=== PATIENT | female | born 1995 | race Two or more races ===

== ENCOUNTER 2024-07-11 11:12 | Inpatient (IN) | payer OTHER ==
[~2024-07-11] VITALS: Ht 121.9 cm; Wt 40.8 kg
--- NOTE | 2024-07-11 11:34 | NUR ---
PTE REFIERE MAREOS Y AZUCAR KAREN DESDE HACE VARIOS ECHEVERRIA. SE LEREALIZA DXT LA CUAL DA MAYOR DE 600 MG DL SE LE ZEINA S/V Y SE UBICA EN AREA DE OBSERVACION.
--- NOTE | 2024-07-11 12:21 | NUR ---
SE RECIBE PTE EN AREA DE CRITICO ALERTA Y ORIENTADA X3 CON 600 MG/DL EN GLUCOSA SE CONECTA A MONITOR CARDIACOY OXIMETRIA, SE CANALIZA CIARAN DE EDEMA NI ERITEMA EN MANO RT EN FOREAM Y HAND CON #20, PTE NO PRESENTA EDEMA EN BRAZOS. ABDOMEN BLANDO AL TACTO NO PRESENTA EDEMA EN PARRISH PIES. SE OBSERAVA PIEL NORMAL Y CUIDADA. SE MANTIENE MONITOREADA.
[2024-07-11 12:47] LABS: HEMATOCRIT 42.9 % (36.0-45.00); HEMOGLOBIN 14.2 g/dL (12.0-15.00); MEAN CELL VOLUME 90.8 fL (80.00-100.00); MEAN CORPUSCULAR HEMOGLOBIN 29.9 pg (27.00-32.0); PLATELET COUNT 282 K/uL (150-450); RED BLOOD COUNT 4.73 M/uL (4.00-6.00); RED CELL DISTRIBUTION WIDTH 12.5 % (11.5-14.5)
[2024-07-11] MEDS ORDERED: INSULIN REGULAR, HUMAN 1,000 UNIT/10 ML UNITS IV STA (12:51)
[2024-07-11] MEDS ORDERED: SODIUM CL 0.9% 25 ML IV.SOLN. IV SCH (13:00)
[2024-07-11 13:24] LABS: ABG PH 7.369 (7.35-7.45); ABG pCO2 33.5 mmHg (35-45); BASE EXCESS -5.4 mmol/l; BICARBONATE 18.9 mmol/l (23-25); SaO2 97.2 %; Tco2 19.9 mmol/l
[2024-07-11 13:25] LABS: allen test SATISFACTORY; o2 21 %; puncture site RADIAL LEFT
[2024-07-11 13:27] LABS: proBNP 33 pg/mL (0-51.9)
[2024-07-11 13:29] LABS: TROPONIN I hs < 3.0 PG/ML (42.2-82.3)
[2024-07-11 13:30] LABS: INR < 0.93; PARTIAL THROMBOPLASTIN TIME 25.5 SECONDS (22.0-34.0); PROTHROMBIN TIME 10.1 SECONDS (9.0-11.5)
[2024-07-11 14:03] LABS: ALBUMIN 3.9 gm/dL (3.4-5.0); BILIRUBIN TOTAL 0.41 mg/dL (0.3-1.2); CALCIUM 9.6 mg/dL (8.5-10.1); CREATININE SERUM 0.71 mg/dL (0.55-1.02); GFR 98.75; GLOBULINA 3.7 G/DL (2.4-3.5); POTASSIUM 4.57 mEq/L (3.5-5.1); TOTAL PROTEIN 7.6 gm/dL (6.4-8.2)
[2024-07-11 14:12] LABS: PH,URINE 6.5 (5.0-8.0); URINE APPEARANCE Clear; URINE BILIRRUBIN Negative (NEGATIVE); URINE BLOOD Negative; URINE COLOR Yellow; URINE LEUKOCYTE Negative; URINE NITRATE Negative; URINE PROTEIN Negative (NEGATIVE); URINE UROBILINOGEN 0.2 E.U./dl
[2024-07-11 14:17] LABS: URINE BACTERIA 2811.2 uL (0.0-1933); URINE EPITHELIAL CELLS 12.9 uL (0.0-38.8); URINE WBC 12.6 uL (0.0-23.2)
[2024-07-11 14:23] LABS: URINE GLUCOSE >=1000 MG/DL (NEGATIVE); URINE KETONE 80 (NEGATIVE); URINE RBC 0.7 uL (0.0-20.8)
--- NOTE | 2024-07-11 16:23 | NUR ---
SE RECIBE PT EALERTA Y ORIENTADA EN CAMA #3 DE UNIDAD DE CRITICO. PTE CONECTADA A MONITOR CARDIACO CON OXIMETRIA CONTINUA. PTE CON H/L X2 EN BRAZO RT LIBRES DE EDEMA, PTE CON IV FLUIDS DE 0.9NSS BAJANDO A 250ML/HR. PTE CONSULTADA CON MEDICINA INTERNA. SE MIDEN S/V A PTE Y SE DOCUMENTAN , PTE SE CONTINUA MONITORIANDO POR CAMBIOS.
[2024-07-11] MEDS ORDERED: 0.9 % SODIUM CHLORIDE 1,000 ML IV SCH (17:30)
[2024-07-11] MEDS ORDERED: 0.9 % SODIUM CHLORIDE 1,000 ML IV ONE (17:30)
[2024-07-11] MEDS ORDERED: ONDANSETRON HCL 4 MG in 0.9 % SODIUM CHLORIDE 50 ML IV PRN (17:30)
[2024-07-11] MEDS ORDERED: ACETAMINOPHEN 500 MG GEL..CAP PO PRN (17:30)
[2024-07-11] MEDS ORDERED: DEXTROSE 50 % IN WATER 0.5 G/ML DISP.SYRIN IV PRN (17:45)
[2024-07-11] MEDS ORDERED: INSULIN LISPRO 1,000 UNIT/10 ML UNITS SUBCUTANEO PRN (17:45)
[2024-07-11 19:01] VITALS: BP 128/88
[2024-07-12 02:04] VITALS: BP 94/64; O2SAT 98
[2024-07-12] MEDS ORDERED: FAMOTIDINE/PF 20 MG in 0.9 % SODIUM CHLORIDE 8 ML IV PUSH SCH (09:00)
[2024-07-12 09:09] LABS: HEMATOCRIT 36.6 % (36.0-45.00); HEMOGLOBIN 12.1 g/dL (12.0-15.00); MEAN CELL VOLUME 89.6 fL (80.00-100.00); MEAN CORPUSCULAR HEMOGLOBIN 29.7 pg (27.00-32.0); MEAN CORPUSCULAR HGB CONC 33.2 g/dl (32.0-36.0); PLATELET COUNT 255 K/uL (150-450); RED BLOOD COUNT 4.08 M/uL (4.00-6.00); RED CELL DISTRIBUTION WIDTH 12.6 % (11.5-14.5)
[2024-07-12] MEDS ORDERED: INSULIN LISPRO 1,000 UNIT/10 ML UNITS SUBCUTANEO PRN (09:30)
[2024-07-12 09:35] LABS: PHOSPHOROUS 2.8 mg/dL (2.5-4.9); TSH 0.852 uIU/mL (0.358-3.74)
[2024-07-12 09:37] LABS: ALBUMIN 2.4 gm/dL (3.4-5.0); BILIRUBIN TOTAL 0.35 mg/dL (0.3-1.2); CREATININE SERUM 0.39 mg/dL (0.55-1.02); GFR 197.14; GLOBULINA 2.6 G/DL (2.4-3.5); POTASSIUM 3.69 mEq/L (3.5-5.1)
[2024-07-12 09:52] LABS: MAGNESIUM 1.4 mg/dL (1.8-2.4)
[2024-07-12 10:29] VITALS: BP 92/52; O2SAT 100
[2024-07-12] MEDS ORDERED: INSULIN GLARGINE,HUM.REC.ANLOG 1,000 UNITS/10 ML UNITS SUBCUTANEO STA (10:45)
[2024-07-12 17:07] VITALS: BP 115/79; O2SAT 98
[2024-07-13 00:12] VITALS: BP 112/79; O2SAT 97
[2024-07-13] MEDS ORDERED: INSULIN LISPRO 1,000 UNIT/10 ML UNITS SUBCUTANEO SCH (08:00)
[2024-07-13 08:11] VITALS: BP 108/65
[2024-07-13] MEDS ORDERED: INSULIN GLARGINE,HUM.REC.ANLOG 1,000 UNITS/10 ML UNITS SUBCUTANEO SCH ×2 (09:00)
[2024-07-13 17:12] VITALS: BP 104/60
[2024-07-14 00:35] VITALS: BP 106/62; O2SAT 98
[2024-07-14 07:15] LABS: CALCIUM 8.7 mg/dL (8.5-10.1); CREATININE SERUM 0.46 mg/dL (0.55-1.02); GFR 162.95; POTASSIUM 4.41 mEq/L (3.5-5.1)
[2024-07-14] MEDS ORDERED: INSULIN LISPRO 1,000 UNIT/10 ML UNITS SUBCUTANEO SCH (08:16)
[2024-07-14 08:24] VITALS: BP 95/62
[2024-07-14] MEDS ORDERED: INSULIN GLARGINE,HUM.REC.ANLOG 1,000 UNITS/10 ML UNITS SUBCUTANEO SCH (09:00)
[2024-07-14 18:29] VITALS: BP 142/78
[2024-07-14 18:33] VITALS: BP 88/61; O2SAT 99
[2024-07-15 02:24] VITALS: BP 94/56; O2SAT 100
[2024-07-15] MEDS ORDERED: INSULIN LISPRO 1,000 UNIT/10 ML UNITS SUBCUTANEO SCH (08:00)
[2024-07-15] MEDS ORDERED: INSULIN GLARGINE,HUM.REC.ANLOG 1,000 UNITS/10 ML UNITS SUBCUTANEO SCH (09:00)
[2024-07-15 09:36] VITALS: BP 121/72; O2SAT 95
[2024-07-16 15:06] LABS: PANCREATIC ISLET CELL Negative (Neg:<1:1)
== END 2024-07-15 12:05 | disposition home or self-care (01) | DRG 638 ==
LOC: ER 11:13 → MEDJ 18:52
PROVIDERS: General Practice; Internal Medicine; Internal Medicine Endocrinology, Diabetes & Metabolism; ADMIT Internal Medicine; ATTEND Internal Medicine
DX: E10.65 Type 1 diabetes mellitus with hyperglycemia (principal); E87.0 Hyperosmolality and hypernatremia; E10.69 Type 1 diabetes mellitus with other specified complication; E86.0 Dehydration; Z79.4 Long term (current) use of insulin